=== PATIENT | male | born 1995 | race Caucasian/White ===

== ENCOUNTER 2022-03-11 19:22 | Emergency (ER) | payer SELFPAY ==
[2022-03-11 19:31] VITALS: BP 131/87; PULSE 72; TEMP 98.7; BMI 29.9
[2022-03-11] MEDS ORDERED: DEXAMETHASONE LIQUID 0.5 MG/5 ML PO ONE (20:26)
[2022-03-11] MEDS ORDERED: MECLIZINE HCL 25 MG TABLET (FP) PO ONE (20:27)
[2022-03-11] MEDS ORDERED: FAMOTIDINE 20 MG TABLET PO ONE (20:27)
[2022-03-11] MEDS ORDERED: DEXAMETHASONE SOD PHOSPHATE 10 MG/1 ML VIAL ONE (20:35)
== END 2022-03-11 21:20 | disposition home or self-care (01) ==
LOC: JERFT 19:22
DX: R42 Dizziness and giddiness (principal); L23.9 Allergic contact dermatitis, unspecified cause
CPT/HCPCS: 99283-25